=== PATIENT | female | born 2000 | race Hispanic/Latino ===

== ENCOUNTER 2024-12-01 12:25 | Emergency (ER) | payer BC ==
[~2024-12-01] VITALS: Ht 157.5 cm; Wt 86.2 kg
--- NOTE | 2024-12-01 14:02 | ERN ---
General Chief Complaint: Headache Stated Complaint: HEADACHE Time Seen by MD: 12:32 Source: patient History of Present Illness Initial Comments 24-year-old female with new symptoms of nausea vomiting blurry eyes bilateral temporal headache that feels better when she pulls on her hair. She is also very somnolent. It started at work today. She has never had these symptoms before. Her past medical history is unremarkable. Allergies: Coded Allergies: No Known Drug Allergies (Unverified Allergy, Unknown, 12/01/24) Past Medical History Past Medical History: No Pertinent History Medical History Other: denies pmhx Past Surgical History: None Constitutional: (-) chills, (-) diaphoresis, (-) fever, (-) malaise, (-) weakness, (-) other documentation EENTM: (+) blurred vision Respiratory: (-) cough, (-) orthopnea, (-) short of breath, (-) stridor, (-) wheezing, (-) other documentation Cardiovascular: (-) chest pain, (-) edema, (-) palpitations, (-) syncope, (-) dyspnea on exertion, (-) other documentation Gastrointestinal/Abdominal: (+) nausea, (+) vomiting Genitourinary: (-) vaginal discharge, (-) vaginal bleeding, (-) dysuria, (-) frequency, (-) hematuria, (-) pain, (-) other documentation Musculoskeletal: (-) Neck pain, (-) back pain, (-) Flank Pain, (-) joint pain, (-) joint swelling, (-) muscle pain, (-) muscle stiffness, (-) gout, (-) other documentation Neuro: (+) headache Physical Exam General Appearance: (+) mild distress, (+) moderate distress Orientation: (+) alert, (+) oriented x 3 Head/Face Trauma: No Eye: bilateral eye normal inspection, bilateral eye PERRL, bilateral eye EOMI Ear, Nose, Throat: (+) hearing grossly normal, (+) normal ENT inspection Neck: (+) supple, (+) full range of motion Respiratory: (+) chest non-tender, (+) lungs clear, (+) well ventilated Heart: (+) regular, (+) no gallop Vascular: (+) no edema, (+) normal peripheral pulse Gastrointestinal: (+) soft, (+) non-tender, (+) bowel sound present Results Laboratory and Microbiology Lab and Micro Result Laboratory Tests Test 12/01/24 14:11 White Blood Count 12.6 K/uL (4.8-10.8) H Red Blood Count 5.06 MIL/uL (4.00-5.50) Hemoglobin 15.0 g/dL (12.0-16.0) Hematocrit 44.7 % (36-48) Mean Corpuscular Volume 88.3 fL (79-99) Mean Corpuscular Hemoglobin 29.6 pg (27.0-33.0) Mean Corpuscular Hemoglobin Concent 33.6 g/dL (32.0-36.0) Red Cell Distribution Width 12.5 % (11.0-15.5) Platelet Count 401 K/uL (130-400) H Mean Platelet Volume 9.1 fL (7.5-10.5) Immature Granulocyte % (Auto) 0.3 % (0-1) Neutrophils (%) (Auto) 79.9 % (40.0-77.0) H Lymphocytes (%) (Auto) 15.8 % (21.0-51.0) L Monocytes (%) (Auto) 2.9 % (3.0-13.0) L Eosinophils (%) (Auto) 0.8 % (0.0-8.0) Basophils (%) (Auto) 0.3 % (0.0-5.0) Neutrophils # (Auto) 10.1 K/uL (1.8-7.7) H Lymphocytes # (Auto) 2.0 K/uL (1.0-4.8) Monocytes # (Auto) 0.4 K/uL (0.1-1.0) Eosinophils # (Auto) 0.10 K/uL (0.00-0.70) Basophils # (Auto) 0.04 K/uL (0.00-0.20) Absolute Immature Granulocyte (auto 0.04 K/uL (0-1) Nucleated Red Blood Cells 0.0 % (0.0-0.19) Urine Color LIGHT-YELLOW (YELLOW) Urine Appearance CLEAR (CLEAR) Urine pH 6.5 (5.0-8.0) Urine Specific [place] 1.021 (1.001-1.031) Urine Protein NEGATIVE mg/dL (NEGATIVE) Urine Glucose (UA) NEGATIVE mg/dL (NEGATIVE) Urine Ketones NEGATIVE mg/dL (NEGATIVE) Urine Occult Blood NEGATIVE (NEGATIVE) Urine Nitrate NEGATIVE (NEGATIVE) Urine Bilirubin NEGATIVE mg/dL (NEGATIVE) Urine Urobilinogen 0.2 mg/dL (0.2-1.0) Urine Leukocyte Esterase NEGATIVE Katharina/uL Urine HCG, Qualitative NEGATIVE (NEGATIVE) Sodium Level 140 mmol/L (136-145) Potassium Level 4.3 mmol/L (3.5-5.1) Chloride Level 103 mmol/L (101-111) Carbon Dioxide Level 30 mmol/L (21-32) Blood Urea Nitrogen 8 mg/dL (7-18) Creatinine 0.6 mg/dL (0.5-1.0) Glomerular Filtration Rate Calc 129 mL/min (>90) Random Glucose 99 mg/dL (70-105) Lactic Acid Level 1.1 mmol/L (0.8-2.5) Total Calcium 9.4 mg/dL (8.5-10.1) Total Bilirubin 0.8 mg/dL (0.2-1.0) Aspartate Amino Transf (AST/SGOT) 14 U/L (10-37) Alanine Aminotransferase (ALT/SGPT) 22 U/L (12-78) Alkaline Phosphatase 113 U/L (50-136) Total Protein 8.4 g/dL (6.0-8.3) H Albumin 4.1 g/dL (3.5-5.0) MDM MDM: Differential diagnosis: CVA, TIA, dehydration, UTI, infection, tension headache, meningitis Rationale: Tests considered and ordered secondary to shared decision making include: Previous outside records reviewed: Old ER visits. Risk of complication and/or morbidity or mortality of patient management: None Medications-Per medication reconciliation Need for hospitalization: Patient does meet criteria for hospitalization. Need for emergency major/minor surgery: No There are no social concerns with this patient. Prescription drug management Prescriptions will include symptomatic care Patient's prior external medical records from other ER visits were reviewed by me as indicated. Prior testing and results from previous visits were reviewed. Prior tests were taken into account with medical decision making and resource utilization, independent historian/historians were used to obtain complete medical history. I independently interpreted the test that were performed, results were reviewed by me and considered findings on radiology if ordered. Patient's laboratory analysis showed a mild leukocytosis with a mild left shift. Her chemistry panel was normal. Her UA was normal. With the medications I gave and the IV fluids the patient is 100% symptom free and would like to go home. ED Course Orders Procedure Category Date Status Time Cbc With Differential LAB 12/01/24 Complete 13: Comprehensive LAB 12/01/24 Complete Metabolic Panel 13: Lactic Acid LAB 12/01/24 Complete 13:25 ,Urine Test LAB 12/01/24 Complete 13: Urinalysis Profile LAB 12/01/24 Complete 13:25 Lactated Ringers PHA 12/01/24 Complete 1000ml (Lactated 13:25 Ketorolac PHA 12/01/24 Complete Tromethamine 30mg/Ml 13:30 Orphenadrine Citrate PHA 12/01/24 Complete (Norflex) 13:30 Current Medications Medications (Trade) Dose Ordered Sig/Alyce Route PRN Reason Start Time Stop Time Status Last Admin Dose Admin Ketorolac Tromethamine (toRADol) 30 mg ONCE ONCE IVP 12/01/24 13:30 12/01/24 13:32 DC 12/01/24 14:45 Lactated Ringer's (Lactated Ringers 1000ml) 1,000 ml BOLUS STAT IV 12/01/24 13:25 12/01/24 13:32 DC 12/01/24 14:45 Orphenadrine Citrate (Norflex) 60 mg ONCE ONCE IVP 12/01/24 13:30 12/01/24 13:32 DC 12/01/24 14:45 Vital Signs Date Time Temp Pulse Resp B/P (MAP) Pulse Ox O2 Delivery O2 Flow Rate FiO2 12/01/24 14:55 60 16 123/78 100 Room Air* 0 21 12/01/24 12:29 98.1 70 18 127/97 100 Room Air* 0 21 12/01/24 12:27 98.1 70 18 127/97 100 Room Air 0 DX & DISP Disposition: Discharge Departure Impression: Primary Impression: Dehydration Additional Impressions: Blurry vision, bilateral, Headache Condition: Stable Additional Instructions: My best guess is that your symptoms were from a dehydration. I suspect this based on your normal chemistry panel normal UA and CBC that showed only a mild leukocytosis. I do not think you have an infection. Your symptoms improved dramatically with fluid and muscle relaxants. Please follow-up with your primary care physician if these symptoms return. In the meantime drink enough fluid every day so that your urine runs clear at least once a day. Referrals: SELF,REFERRAL (PCP) EVELINE MARISCAL MD Dec 01, 2024 14:02
[2024-12-01 14:21] LABS: IMMATURE GRANULOCYTE ABSOLUTE 0.04 K/uL (0-1); NUCLEATED RED BLOOD CELLS 0.0 % (0.0-0.19); PLATELET COUNT (AUTO) 401 K/uL (130-400); RED BLOOD CELL COUNT(AUTO) 5.06 MIL/uL (4.00-5.50); RED CELL DISTRIBUTION WIDTH 12.5 % (11.0-15.5); WHITE BLOOD COUNT (AUTO) 12.6 K/uL (4.8-10.8)
[2024-12-01 14:29] LABS: APPEARANCE,URINE CLEAR (CLEAR); GLUCOSE, URINE (UA) NEGATIVE (NEGATIVE); LEUKOCYTE ESTERASE ,URINE NEGATIVE Leu/uL (NEGATIVE); NITRATE,URINE NEGATIVE (NEGATIVE); OCCULT BLOOD,URINE NEGATIVE (NEGATIVE)
[2024-12-01 14:34] LABS: CREATININE 0.6 mg/dL (0.5-1.0); GLOMERULAR FILTR. RATE CALC 129.0 mL/min (>90); GLUCOSE,RANDOM 99.0 mg/dL (70-105); SODIUM SERUM 140.0 mmol/L (136-145); UREA NITROGEN, BLOOD 8.0 mg/dL (7-18)
[2024-12-01 14:39] LABS: ASPARTATE AMINOTRANSFERASE 14.0 U/L (10-37); TOTAL PROTEIN, SERUM 8.4 g/dL (6.0-8.3)
[2024-12-01 14:40] LABS: HCG,QUALITATIVE URINE NEGATIVE (NEGATIVE)
[2024-12-01 14:43] LABS: ADD UA MICROSCOPIC NO
[2024-12-01] MEDS: LACTATED RINGERS 1000ML IV STA (14:45)
[2024-12-01] MEDS: ORPHENADRINE 60MG/2ML IVP ONE (14:45)
[2024-12-01 16:40] VITALS: BP 124/72; PULSE 72; RESP 17; TEMP 98; O2SAT 99
== END 2024-12-01 16:46 | disposition home or self-care (01) ==
LOC: EDH 12:25
DX: E86.0 Dehydration (principal); H53.8 Other visual disturbances; R51.9 Headache, unspecified
CPT/HCPCS: 99284; 96374; 96361; 96375; 80053; 85025; 83605; 81003; 81025; 36415; J1885; J7120; J2360